=== PATIENT | female | born 1990 | race Two or more races ===

== ENCOUNTER 2021-08-22 00:09 | Observation (INO) | payer MEDICAID, OTHER ==
[~2021-08-22] VITALS: Ht 157.5 cm; Wt 56.2 kg
[2021-08-22] MEDS ORDERED: LACTATED RINGER'S 1,000 ML IV SCH (00:30)
[2021-08-22] MEDS ORDERED: PREN-96 OR (01:32)
[2021-08-22 02:21] LABS: Basophils # (auto) 0.1 10 ^3/uL (0-0.2); Basophils % (auto) 0.6 % (0.0-2.0); Eosinophils # (auto) 0.1 10 ^3/uL (0-0.8); Eosinophils % (auto) 0.8 % (0.0-7.0); Hematocrit 33.2 % (36.0-46.0); Hemoglobin 11.5 g/dL (12.2-16.2); Lymphocytes # (auto) 2.3 10 ^3/uL (0.4-5.4); Lymphocytes % (auto) 23.1 % (10.0-50.0); Mean Corpuscular Hemoglobin 30.3 pg (28.0-32.0); Mean Corpuscular Hgb Conc. 34.6 g/dL (32.0-36.0); Mean Corpuscular Volume 87.5 fL (80.0-100.0); Monocytes # (auto) 0.5 10 ^3/uL (0-1.3); Monocytes % (auto) 5.3 % (0.0-12.0); Neutrophils % (auto) 70.2 % (37.0-80.0); Nucleated Red Blood Cells % 0.2 %; Red Blood Cells 3.79 10^6/uL (4.0-5.20); White Blood Cell 9.9 10^3/uL (4.4-10.8)
[2021-08-22 02:31] LABS: Albumin 2.8 g/dL (3.4-5.0); BUN/Creatinine Ratio 12.8; Calcium 8.8 mg/dL (8.5-10.1); Potassium 3.8 mmol/L (3.5-5.1)
[2021-08-22 02:34] LABS: Bilirubin, Total 0.2 mg/dL (0.2-1.0); Total Protein 6.6 g/dL (6.4-8.2)
[2021-08-22 02:41] LABS: Alcohol, Urine < 3.0 mg/dL (0-10); Amphetamine Screen, Urine NEGATIVE (NEGATIVE); Barbiturate Scree,Urine NEGATIVE (NEGATIVE); Benzodiazephine Screen, Urine NEGATIVE (NEGATIVE); Cannabinoid Screen, Urine NEGATIVE (NEGATIVE); Cocaine Screen, Urine NEGATIVE (NEGATIVE); Opiate Scree,Urine NEGATIVE (NEGATIVE); Phencyclidine Screen, Urine NEGATIVE (NEGATIVE)
[2021-08-22 02:45] LABS: Urine Bacteria NONE SEEN /hpf (None Seen); Urine Blood 1+ /uL (Negative); Urine Specific Gravity 1.006 (1.001-1.035); Urine WBC 1 /hpf (0 - 5)
[2021-08-22 02:51] LABS: INR 0.94 (0.9-1.15); Partial Thromboplastin Time 25.5 sec (23.6-33.0)
== END 2021-08-22 08:17 | disposition home or self-care (01) ==
LOC: UNDOADMOB 00:09 → LDRP 00:09 → UNDODISOB 08:17
PROVIDERS: ADMIT Obstetrics & Gynecology; ATTEND Obstetrics & Gynecology
DX: O46.93 Antepartum hemorrhage, unspecified, third trimester (principal); Z3A.28 28 weeks gestation of pregnancy
CPT/HCPCS: 36415; 59025; 76815; 76817; 80053; 80307; 81001; 81002; 85025; 85610; 85730; 86850; 86900; 86901; 94760; 96360; 96361; G0378

== ENCOUNTER 2021-09-08 19:16 | Observation (INO) | payer SELFPAY ==
[~2021-09-08] VITALS: Ht 152.4 cm; Wt 56.7 kg
[~2021-09-08 19:16] MED LIST: PREN-96 OR
== END 2021-09-09 01:00 | disposition home or self-care (01) ==
LOC: UNDOADMOB 19:16 → LDRP 19:16 → UNDODISOB 09-09 01:00
PROVIDERS: ADMIT Obstetrics & Gynecology; ATTEND Obstetrics & Gynecology
DX: O26.893 Other specified pregnancy related conditions, third trimester (principal); R10.9 Unspecified abdominal pain; Z3A.31 31 weeks gestation of pregnancy
CPT/HCPCS: 59025; 76815; 81002; G0378

== ENCOUNTER 2021-11-09 13:58 | Observation (INO) | payer MEDICAID | END 2021-11-09 16:17 | disposition home or self-care (01) | LOC: UNDOADMOB 13:58 → LDRP 13:58 | PROVIDERS: ADMIT Obstetrics & Gynecology; ATTEND Obstetrics & Gynecology | DX: O48.0 Post-term pregnancy (principal); O26.893 Other specified pregnancy related conditions, third trimester; R10.2 Pelvic and perineal pain; O99.891 Other specified diseases and conditions complicating pregnancy; M54.9 Dorsalgia, unspecified; Z3A.40 40 weeks gestation of pregnancy | CPT/HCPCS: 59025; 76818; 81002; 94760; G0378 ==

== ENCOUNTER 2021-11-11 02:45 | Inpatient (IN) | payer MEDICAID ==
[~2021-11-11] VITALS: Ht 154.9 cm; Wt 59.0 kg
[2021-11-11] MEDS ORDERED: LACTATED RINGER'S 1,000 ML IV ONE (17:45)
[2021-11-11] MEDS ORDERED: PHISODERM TOP SOLN 240ML BTL TOP PRN (18:00)
[2021-11-11] MEDS ORDERED: LIDOCAINE 2%HCL (LOCAL ANESTH.) INJ 10ml MDV IJ PRN (18:00)
[2021-11-11] MEDS ORDERED: WITCH HAZEL-GLYCERIN PAD TOP PRN (18:00)
[2021-11-11] MEDS ORDERED: LACT. RINGERS/OXYTOCIN 20UNITS 500 ML IV ONE ×2 (18:00→18:30)
[2021-11-11] MEDS ORDERED: LACT. RINGERS/OXYTOCIN 20UNITS 1,000 ML IV SCH (18:00)
[2021-11-11 19:02] LABS: Urine Bacteria FEW /hpf (None Seen); Urine Blood Negative /uL (Negative); Urine Hyaline Cast FEW /lpf (0 - 2); Urine Mucus FEW (None Seen); Urine Specific Gravity 1.012 (1.001-1.035); Urine WBC 23 /hpf (0 - 5)
[2021-11-11 19:04] LABS: Basophils # (auto) 0 10 ^3/uL (0-0.2); Basophils % (auto) 0.2 % (0.0-2.0); Eosinophils # (auto) 0 10 ^3/uL (0-0.8); Eosinophils % (auto) 0.4 % (0.0-7.0); Hematocrit 33.1 % (36.0-46.0); Hemoglobin 10.7 g/dL (12.2-16.2); Lymphocytes # (auto) 1.6 10 ^3/uL (0.4-5.4); Lymphocytes % (auto) 19.2 % (10.0-50.0); Mean Corpuscular Hemoglobin 27.4 pg (28.0-32.0); Mean Corpuscular Hgb Conc. 32.3 g/dL (32.0-36.0); Mean Corpuscular Volume 84.6 fL (80.0-100.0); Monocytes # (auto) 0.4 10 ^3/uL (0-1.3); Monocytes % (auto) 4.9 % (0.0-12.0); Neutrophils # (auto) 6.4 10 ^3/uL (1.6-8.6); Neutrophils % (auto) 75.3 % (37.0-80.0); Nucleated Red Blood Cells % 0.1 %; Red Blood Cells 3.91 10^6/uL (4.0-5.20); Red Cell Distribution Width 16.6 % (11.8-14.3); White Blood Cell 8.5 10^3/uL (4.4-10.8)
[2021-11-11 19:08] LABS: Albumin 2.5 g/dL (3.4-5.0); Calcium 8.4 mg/dL (8.5-10.1); Potassium 3.7 mmol/L (3.5-5.1)
[2021-11-11 19:10] LABS: Amphetamine Screen, Urine NEGATIVE (NEGATIVE); Barbiturate Scree,Urine NEGATIVE (NEGATIVE); Benzodiazephine Screen, Urine NEGATIVE (NEGATIVE); Cannabinoid Screen, Urine NEGATIVE (NEGATIVE); Cocaine Screen, Urine NEGATIVE (NEGATIVE); Opiate Scree,Urine NEGATIVE (NEGATIVE); Phencyclidine Screen, Urine NEGATIVE (NEGATIVE)
[2021-11-11 19:11] LABS: BUN/Creatinine Ratio 14.5; Bilirubin, Total 0.2 mg/dL (0.2-1.0); Total Protein 6.3 g/dL (6.4-8.2)
[2021-11-11 19:29] LABS: INR 0.87 (0.9-1.15); Partial Thromboplastin Time 27.1 sec (24.6-33.4)
[2021-11-11] MEDS ORDERED: PROMETHAZINE HCL 25 MG/ML 1ML IV PRN (20:45)
[2021-11-11] MEDS ORDERED: BUTORPHANOL TARTRATE 2 MG/1 ML VIAL IV PRN (20:45)
[2021-11-11] MEDS: LACTATED RINGER'S 1,000 ML IV SCH (21:03)
[2021-11-12] VITALS (18 sets, daily range): BP systolic 83–117; BP diastolic 46–95
[2021-11-12] MEDS: DERMOPLAST 60ML BOTTLE TOP PRN ×2 (02:16→13:00)
[2021-11-12] MEDS: LACTATED RINGER'S 1,000 ML IV SCH ×2 (03:40→10:00)
[2021-11-12] MEDS ORDERED: METHYLERGONOVINE MALEATE 0.2 MG/ML AMP IM ONE (06:08)
[2021-11-12] MEDS ORDERED: miSOPROStol 100 mcg TAB PR PRN (06:30)
[2021-11-12] MEDS ORDERED: METHYLERGONOVINE MALEATE 0.2 MG/ML AMP IM PRN (06:30)
[2021-11-12] MEDS ORDERED: TRANEXAMIC ACID 1,000 MG in SODIUM CHL 0.9% 100 ML IV ONE (06:30)
[2021-11-12 06:39] LABS: Hematocrit 15.8 % (36.0-46.0)
[2021-11-12 06:43] LABS: Hemoglobin 5.3 g/dL (12.2-16.2)
[2021-11-12] MEDS ORDERED: GENTAMICIN PER PHARMACY 0 ML IV SCH (07:30)
[2021-11-12 07:50] LABS: Hemoglobin 9.4 g/dL (12.2-16.2); Mean Corpuscular Hemoglobin 27.3 pg (28.0-32.0); Mean Corpuscular Hgb Conc. 31.4 g/dL (32.0-36.0); Mean Corpuscular Volume 86.7 fL (80.0-100.0); Red Blood Cells 3.46 10^6/uL (4.0-5.20); Red Cell Distribution Width 16.6 % (11.8-14.3)
[2021-11-12 07:53] LABS: White Blood Cell 30.3 10^3/uL (4.4-10.8)
[2021-11-12 07:55] LABS: Basophils % (manual) 0 (0.0-2.0); Eosinophils % (manual) 0 (0-7)
[2021-11-12 07:56] LABS: Blast Cells 0; Metamyelocytes % 0; Myelocytes % 0; Promyelocytes % 0; Reactive Lymphocytes 0
[2021-11-12 08:04] LABS: Band Neutrophils % (manual) 10; Lymphocytes % (manual) 7 (10.0-50.0); Monocytes % (manual) 3 (0-12)
[2021-11-12 08:06] LABS: INR 0.92 (0.9-1.15); Partial Thromboplastin Time 25.6 sec (24.6-33.4)
[2021-11-12] MEDS ORDERED: D5W 5% IV ONE (08:30)
[2021-11-12] MEDS ORDERED: GENTAMICIN SULFATE IV ONE (08:30)
[2021-11-12] MEDS ORDERED: CLINDAMYCIN 900MG IV 50 ML IV SCH ×2 (08:30→14:00)
[2021-11-12] MEDS: CLINDAMYCIN 900MG IV 50 ML IV SCH ×2 (08:36→16:32)
[2021-11-12] MEDS ORDERED: IBUPROFEN 600 MG TAB PO PRN (10:00)
[2021-11-12] MEDS ORDERED: LACTATED RINGER'S 1,000 ML IV ONE (10:45)
[2021-11-12] MEDS ORDERED: IBUPROFEN 800 MG TAB PO SCH (12:00)
[2021-11-12] MEDS: ACETAMINOPHEN 325 MG TAB PO PRN ×2 (12:03→18:49)
[2021-11-12] MEDS ORDERED: TRANEXAMIC ACID 1,000 mg/10ml INJ VIAL IV ONE (13:49)
[2021-11-12] MEDS ORDERED: miSOPROStol 100 mcg TAB PO ONE (13:49)
[2021-11-12 15:34] LABS: Basophils # (auto) 0.1 10 ^3/uL (0-0.2); Eosinophils # (auto) 0 10 ^3/uL (0-0.8); Monocytes # (auto) 0.6 10 ^3/uL (0-1.3); Monocytes % (auto) 3.9 % (0.0-12.0); Red Cell Distribution Width 16.8 % (11.8-14.3); White Blood Cell 15.7 10^3/uL (4.4-10.8)
[2021-11-12 15:35] LABS: Basophils % (auto) 0.7 % (0.0-2.0); Hematocrit 18.7 % (36.0-46.0); Lymphocytes # (auto) 1.5 10 ^3/uL (0.4-5.4); Lymphocytes % (auto) 9.4 % (10.0-50.0); Mean Corpuscular Hemoglobin 27.8 pg (28.0-32.0); Mean Corpuscular Hgb Conc. 33.2 g/dL (32.0-36.0); Mean Corpuscular Volume 83.9 fL (80.0-100.0); Neutrophils # (auto) 13.5 10 ^3/uL (1.6-8.6); Red Blood Cells 2.23 10^6/uL (4.0-5.20)
[2021-11-12 15:36] LABS: Hemoglobin 6.2 g/dL (12.2-16.2)
[2021-11-12] MEDS: IBUPROFEN 800 MG TAB PO SCH ×2 (16:33→18:00)
[2021-11-13] VITALS (16 sets, daily range): BP systolic 91–116; BP diastolic 50–66
[2021-11-13] MEDS: ACETAMINOPHEN 325 MG TAB PO PRN (00:56)
[2021-11-13] MEDS: CLINDAMYCIN 900MG IV 50 ML IV SCH (00:56)
[2021-11-13 06:06] LABS: RPR Non Reactive (Non Reactive)
[2021-11-13] MEDS: IBUPROFEN 800 MG TAB PO SCH ×4 (06:16→18:20)
[2021-11-13 06:32] LABS: BUN/Creatinine Ratio 28.2; Calcium 7.9 mg/dL (8.5-10.1); Potassium 3.8 mmol/L (3.5-5.1)
[2021-11-13] MEDS ORDERED: IBU600T PO (06:43)
[2021-11-13 07:06] LABS: Basophils # (auto) 0 10 ^3/uL (0-0.2); Basophils % (auto) 0.2 % (0.0-2.0); Eosinophils # (auto) 0 10 ^3/uL (0-0.8); Monocytes # (auto) 0.6 10 ^3/uL (0-1.3); Monocytes % (auto) 5.6 % (0.0-12.0); Neutrophils # (auto) 7.5 10 ^3/uL (1.6-8.6); White Blood Cell 10.1 10^3/uL (4.4-10.8)
[2021-11-13 07:09] LABS: Eosinophils % (auto) 0.3 % (0.0-7.0); Hematocrit 19.8 % (36.0-46.0); Lymphocytes % (auto) 19.9 % (10.0-50.0); Mean Corpuscular Hgb Conc. 33.2 g/dL (32.0-36.0); Mean Corpuscular Volume 87.2 fL (80.0-100.0); Nucleated Red Blood Cells % 0.1 %; Red Blood Cells 2.27 10^6/uL (4.0-5.20); Red Cell Distribution Width 15.7 % (11.8-14.3)
[2021-11-13 07:11] LABS: Hemoglobin 6.6 g/dL (12.2-16.2)
[2021-11-13] MEDS: FERROUS SULFATE 325mg EC TAB PO SCH ×2 (07:57→08:02)
[2021-11-13] MEDS ORDERED: GENTAMICIN SULFATE 240 MG in D5W 5% 100 ML IV ONE ×2 (09:30→10:00)
[2021-11-13 22:04] LABS: Eosinophils # (auto) 0 10 ^3/uL (0-0.8); Monocytes # (auto) 0.5 10 ^3/uL (0-1.3); Nucleated Red Blood Cells % 0.1 %
[2021-11-13 22:05] LABS: Basophils # (auto) 0 10 ^3/uL (0-0.2); Basophils % (auto) 0.3 % (0.0-2.0); Eosinophils % (auto) 0.4 % (0.0-7.0); Hematocrit 23.9 % (36.0-46.0); Hemoglobin 7.9 g/dL (12.2-16.2); Lymphocytes # (auto) 2.5 10 ^3/uL (0.4-5.4); Lymphocytes % (auto) 23.3 % (10.0-50.0); Mean Corpuscular Volume 84.9 fL (80.0-100.0); Monocytes % (auto) 4.7 % (0.0-12.0); Neutrophils # (auto) 7.5 10 ^3/uL (1.6-8.6); Neutrophils % (auto) 71.3 % (37.0-80.0); Red Blood Cells 2.82 10^6/uL (4.0-5.20); White Blood Cell 10.5 10^3/uL (4.4-10.8)
[2021-11-14] MEDS: IBUPROFEN 800 MG TAB PO SCH (00:02)
[2021-11-14 03:00] VITALS: BP 113/55
[2021-11-14] MEDS: ACETAMINOPHEN 325 MG TAB PO PRN (03:03)
[2021-11-14] MEDS ORDERED: SIMETHICONE 80 MG CHEWABLE TABLET PO PRN (04:00)
[2021-11-14 06:36] LABS: Basophils # (auto) 0 10 ^3/uL (0-0.2); Basophils % (auto) 0.3 % (0.0-2.0); Eosinophils # (auto) 0.1 10 ^3/uL (0-0.8); Eosinophils % (auto) 0.9 % (0.0-7.0); Hematocrit 20.2 % (36.0-46.0); Hemoglobin 7.1 g/dL (12.2-16.2); Lymphocytes # (auto) 2.3 10 ^3/uL (0.4-5.4); Lymphocytes % (auto) 26.3 % (10.0-50.0); Mean Corpuscular Hemoglobin 29.4 pg (28.0-32.0); Mean Corpuscular Hgb Conc. 34.9 g/dL (32.0-36.0); Mean Corpuscular Volume 84.2 fL (80.0-100.0); Monocytes # (auto) 0.4 10 ^3/uL (0-1.3); Monocytes % (auto) 4.2 % (0.0-12.0); Neutrophils # (auto) 6.1 10 ^3/uL (1.6-8.6); Neutrophils % (auto) 68.3 % (37.0-80.0); Nucleated Red Blood Cells % 0.1 %; Red Cell Distribution Width 16.4 % (11.8-14.3); White Blood Cell 8.9 10^3/uL (4.4-10.8)
[2021-11-14 06:41] VITALS: BP 90/55
[2021-11-14] MEDS: FERROUS SULFATE 325mg EC TAB PO SCH (10:00)
== END 2021-11-14 10:15 | disposition home or self-care (01) | DRG 560 ==
LOC: LDRP 02:45 → UNDOADMOB 02:45 → INTOOBSV 17:51 → OBSVTOIN 17:51 → LDRP 17:51 → UNDODISIN 11-14 10:15 → EDSTATUS 11-23 07:39
PROVIDERS: ADMIT Obstetrics & Gynecology; ATTEND Obstetrics & Gynecology
PROC: 10E0XZZ Delivery of Products of Conception, External Approach (ICD-10-PCS; principal; 2021-11-12)
PROC: 3E033VJ Introduction of Other Hormone into Peripheral Vein, Percutaneous Approach (ICD-10-PCS; 2021-11-12)
PROC: 3E0DXGC Introduction of Other Therapeutic Substance into Mouth and Pharynx, External Approach (ICD-10-PCS; 2021-11-12)
PROC: 10D17Z9 Manual Extraction of Products of Conception, Retained, Via Natural or Artificial Opening (ICD-10-PCS; 2021-11-12)
PROC: 30233N1 Transfusion of Nonautologous Red Blood Cells into Peripheral Vein, Percutaneous Approach (ICD-10-PCS; 2021-11-12)
DX: O48.0 Post-term pregnancy (principal); Z37.0 Single live birth; O72.1 Other immediate postpartum hemorrhage; Z3A.40 40 weeks gestation of pregnancy
CPT/HCPCS: 36415; 36430; 59025; 59200; 59409; 59414; 76818; 80048; 80053; 80170; 80307; 81001; 81002; 85007; 85014; 85018; 85025; 85027; 85610; 85730; 86592; 86850; 86900; 86901; 86920; 94760; 94762; 96360; 96361; 96365; 96366; 96372; 96374; 96375; G0378; J2001; J2590; J3490; J7060